=== PATIENT | male | born 1950 | race Caucasian/White ===

== ENCOUNTER 2017-04-23 11:38 | Inpatient (IN) | payer MEDICARE ==
[~2017-04-23 11:38] MED LIST: ACTOS; ALPHA LIPOIC A PO; AMITRIPTYLINE H50 MG; AMLODIPINE BESYL5 MG PO; BACTRIM DS TAB1 EAC2 PO; CINNAMON500 M1 PO; CITALOPRAM HBR20 MG PO; COZAAR50 M1 PO; ELAVIL; GLIPIZIDE10 M2 PO; GLYBURID-METFOR1 T PO; GLYBURIDE-MET1 UDTA; GLYBURIDE5 M1 PO; IMITREX; IMITREX100 M2 PO; IMITREX100 MG; INDERAL LA160 MG; IRON325 M1 PO; IRON325 M3 PO; LANTUS SOL100 UNIT/1 SC; LANTUS SOLOSTAR3 ML SQ; LANTUS100 U/ML SC; LEVAQUIN750 MG PO; LEVEMIR FL100 UNIT/2 SQ; LEVEMIR100 UNITS/ SC; LOVENOX40 MG/0.4 SQ; MAGNESIUM400 M2 PO; METFORMIN; METFORMIN HCL500 M2 PO; NORCO 5-325 TA1 EACH PO; NORCO 5/325 TAB1 TAB PO; NORCO 7.5/325 T1 TAB PO; PROPRANOLOL HCL80 M3 PO; PROPRANOLOL LA; SENNA LAXATIVE1 EACH PO; TOPIRAMATE200 M1 PO; VITAMIN D1000 UNI3 PO; ZOCOR20 MG PO
[2017-04-23] MEDS ORDERED: BACTRIM DS TAB1 EAC2 PO (12:07)
[2017-04-23 15:11] LABS: PROTHROMBIN TIME 11.6 SECONDS (9.0-13.6)
[2017-04-23 15:15] LABS: BASO % 0.1 % (0-2); HCT-HEMATOCRIT 33.1 % (36.0-53.5); HGB-HEMOGLOBIN 11.5 gm/dl (13.5-17.0); IMMATURE GRANULOCYTES ABSOLUTE 0.21 tho/cmm (0-0.03); IMMATURE GRANULOCYTES PERCENT 0.8 % (0-0.3); LYMPH ABSOLUTE COUNT 2.2 tho/cmm (0.8-4.5); MCH (MEAN CORPUSCULAR HGB) 30.9 pg (28.0-32.0); MCHC MEAN CORPUSCULAR HGB CONC 34.7 % (32.0-36.0); MEAN PLATELET VOLUME 9.6 cmc (9.4-12.4); MONO % 12.9 % (0-12); MONOCYTE ABSOLUTE COUNT 3.5 tho/cmm (0.0-1.2); NEUTROPHILS % 78.2 % (40-80); PLATELET COUNT 375 tho/cmm (150-450); RED BLOOD COUNT 3.72 mil/cmm (4.40-5.70); RED CELL DISTRIBUTION WIDTH 12.7 % (12.4-16.4); WHITE BLOOD COUNT 26.9 tho/cmm (4.0-10.0)
[2017-04-23 15:21] LABS: ALB/GLOB RATIO 0.5 (0.8-2.0); ALBUMIN 2.4 g/dl (3.5-5.0); ALKALINE PHOSPHATASE 88 U/L (33-138); ALT/SGPT 13 U/L (12-78); ANION GAP 15 mmol/L (0-20); AST/SGOT 11 U/L (10-40); BILIRUBIN,TOTAL 0.7 mg/dl (0.0-1.5); BLOOD UREA NITROGEN 28 mg/dl (6-24); CALCIUM 8.4 mg/dl (8.5-10.5); CARBON DIOXIDE-VENOUS 23 mmol/L (22-32); CHLORIDE 93 mmol/l (96-110); CREATININE 1.73 mg/dl (0.60-1.30); GLUCOSE 255 mg/dL (70-110); POTASSIUM 3.9 mmol/L (3.7-5.1); SODIUM 127 mmol/L (135-145); eGFR VALUE FOR BLACK 46 mL/Min
[2017-04-23] MEDS ORDERED: NORVASC5 M2 PO (15:24)
[2017-04-23 15:42] LABS: PREALBUMIN 5.6 mg/dl (20.0-40.0)
[2017-04-23] MEDS ORDERED: MULBERRY LEAF PO (16:06)
[2017-04-24 12:58] LABS: BASO % 0.1 % (0-2); EOS % 0.3 % (0-7); EOSINOPHIL ABSOLUTE COUNT 0.1 tho/cmm (0.0-0.7); HCT-HEMATOCRIT 30.8 % (36.0-53.5); HGB-HEMOGLOBIN 10.5 gm/dl (13.5-17.0); IMMATURE GRANULOCYTES ABSOLUTE 0.17 tho/cmm (0-0.03); LYMPH % 11.2 % (20-45); LYMPH ABSOLUTE COUNT 1.8 tho/cmm (0.8-4.5); MCH (MEAN CORPUSCULAR HGB) 30.3 pg (28.0-32.0); MCHC MEAN CORPUSCULAR HGB CONC 34.1 % (32.0-36.0); MCV (MEAN CELL VOLUME) 88.8 fl (82.0-96.0); MEAN PLATELET VOLUME 9.5 cmc (9.4-12.4); MONO % 10.3 % (0-12); MONOCYTE ABSOLUTE COUNT 1.7 tho/cmm (0.0-1.2); NEUTROPHIL ABSOLUTE COUNT 12.5 tho/cmm (1.6-8.0); NEUTROPHIL-AUTOMATED 12.5 tho/cmm (1.6-8.0); NEUTROPHILS % 77.1 % (40-80); PLATELET COUNT 388 tho/cmm (150-450); RED BLOOD COUNT 3.47 mil/cmm (4.40-5.70); RED CELL DISTRIBUTION WIDTH 12.8 % (12.4-16.4); WHITE BLOOD COUNT 16.2 tho/cmm (4.0-10.0)
[2017-04-24 13:23] LABS: ANION GAP 13 mmol/L (0-20); BLOOD UREA NITROGEN 21 mg/dl (6-24); C-REACTIVE PROTEIN 17.9 mg/dl (0-0.9); CALCIUM 8.1 mg/dl (8.5-10.5); CARBON DIOXIDE-VENOUS 21 mmol/L (22-32); CHLORIDE 102 mmol/l (96-110); CREATININE 1.45 mg/dl (0.60-1.30); GLUCOSE 257 mg/dL (70-110); POTASSIUM 3.9 mmol/L (3.7-5.1); SODIUM 132 mmol/L (135-145); eGFR VALUE FOR BLACK 57 mL/Min
[2017-04-24 13:30] LABS: PROCALCITONIN 1.43 ng/ml (0.05-0.09)
[2017-04-25 05:48] LABS: BASO % 0.1 % (0-2); EOS % 0.8 % (0-7); EOSINOPHIL ABSOLUTE COUNT 0.1 tho/cmm (0.0-0.7); HCT-HEMATOCRIT 30.1 % (36.0-53.5); HGB-HEMOGLOBIN 10.2 gm/dl (13.5-17.0); IMMATURE GRANULOCYTES ABSOLUTE 0.21 tho/cmm (0-0.03); IMMATURE GRANULOCYTES PERCENT 1.3 % (0-0.3); LYMPH % 11.9 % (20-45); MCH (MEAN CORPUSCULAR HGB) 30.1 pg (28.0-32.0); MCHC MEAN CORPUSCULAR HGB CONC 33.9 % (32.0-36.0); MCV (MEAN CELL VOLUME) 88.8 fl (82.0-96.0); MEAN PLATELET VOLUME 9.2 cmc (9.4-12.4); MONO % 14.8 % (0-12); MONOCYTE ABSOLUTE COUNT 2.5 tho/cmm (0.0-1.2); NEUTROPHILS % 71.1 % (40-80); PLATELET COUNT 371 tho/cmm (150-450); RED BLOOD COUNT 3.39 mil/cmm (4.40-5.70); RED CELL DISTRIBUTION WIDTH 12.8 % (12.4-16.4); WHITE BLOOD COUNT 16.8 tho/cmm (4.0-10.0)
[2017-04-25 05:55] LABS: ANION GAP 12 mmol/L (0-20); BLOOD UREA NITROGEN 17 mg/dl (6-24); C-REACTIVE PROTEIN 14.7 mg/dl (0-0.9); CALCIUM 8.1 mg/dl (8.5-10.5); CARBON DIOXIDE-VENOUS 21 mmol/L (22-32); CHLORIDE 104 mmol/l (96-110); CREATININE 1.24 mg/dl (0.60-1.30); GLUCOSE 208 mg/dL (70-110); POTASSIUM 3.9 mmol/L (3.7-5.1); SODIUM 133 mmol/L (135-145); eGFR VALUE FOR BLACK 69 mL/Min
[2017-04-25 06:28] LABS: PROCALCITONIN 0.99 ng/ml (0.05-0.09)
[2017-04-26 06:02] LABS: BASO % 0.2 % (0-2); EOS % 2.8 % (0-7); EOSINOPHIL ABSOLUTE COUNT 0.4 tho/cmm (0.0-0.7); HCT-HEMATOCRIT 30.3 % (36.0-53.5); HGB-HEMOGLOBIN 10.1 gm/dl (13.5-17.0); IMMATURE GRANULOCYTES ABSOLUTE 0.18 tho/cmm (0-0.03); IMMATURE GRANULOCYTES PERCENT 1.3 % (0-0.3); LYMPH % 11.9 % (20-45); LYMPH ABSOLUTE COUNT 1.7 tho/cmm (0.8-4.5); MCH (MEAN CORPUSCULAR HGB) 29.7 pg (28.0-32.0); MCHC MEAN CORPUSCULAR HGB CONC 33.3 % (32.0-36.0); MCV (MEAN CELL VOLUME) 89.1 fl (82.0-96.0); MEAN PLATELET VOLUME 9.4 cmc (9.4-12.4); MONO % 14.1 % (0-12); NEUTROPHIL ABSOLUTE COUNT 9.8 tho/cmm (1.6-8.0); NEUTROPHIL-AUTOMATED 9.8 tho/cmm (1.6-8.0); NEUTROPHILS % 69.7 % (40-80); PLATELET COUNT 461 tho/cmm (150-450); WHITE BLOOD COUNT 14.1 tho/cmm (4.0-10.0)
[2017-04-26 06:12] LABS: ANION GAP 14 mmol/L (0-20); BLOOD UREA NITROGEN 12 mg/dl (6-24); CALCIUM 8.5 mg/dl (8.5-10.5); CARBON DIOXIDE-VENOUS 21 mmol/L (22-32); CHLORIDE 105 mmol/l (96-110); GLUCOSE 115 mg/dL (70-110); SODIUM 136 mmol/L (135-145); eGFR VALUE FOR BLACK 80 mL/Min
[2017-04-26 06:42] LABS: PROCALCITONIN 0.65 ng/ml (0.05-0.09)
[2017-04-28 06:12] LABS: BASO % 0.3 % (0-2); BASO ABSOLUTE COUNT 0.1 tho/cmm (0.0-0.2); EOS % 2.8 % (0-7); EOSINOPHIL ABSOLUTE COUNT 0.4 tho/cmm (0.0-0.7); HCT-HEMATOCRIT 31.7 % (36.0-53.5); HGB-HEMOGLOBIN 10.6 gm/dl (13.5-17.0); IMMATURE GRANULOCYTES ABSOLUTE 0.23 tho/cmm (0-0.03); IMMATURE GRANULOCYTES PERCENT 1.6 % (0-0.3); LYMPH % 15.1 % (20-45); LYMPH ABSOLUTE COUNT 2.2 tho/cmm (0.8-4.5); MCH (MEAN CORPUSCULAR HGB) 29.9 pg (28.0-32.0); MCHC MEAN CORPUSCULAR HGB CONC 33.4 % (32.0-36.0); MCV (MEAN CELL VOLUME) 89.5 fl (82.0-96.0); MONO % 10.2 % (0-12); MONOCYTE ABSOLUTE COUNT 1.5 tho/cmm (0.0-1.2); NEUTROPHIL ABSOLUTE COUNT 10.3 tho/cmm (1.6-8.0); NEUTROPHIL-AUTOMATED 10.3 tho/cmm (1.6-8.0); PLATELET COUNT 618 tho/cmm (150-450); RED BLOOD COUNT 3.54 mil/cmm (4.40-5.70); RED CELL DISTRIBUTION WIDTH 13.3 % (12.4-16.4); WHITE BLOOD COUNT 14.7 tho/cmm (4.0-10.0)
[2017-04-28 06:21] LABS: ANION GAP 13 mmol/L (0-20); BLOOD UREA NITROGEN 11 mg/dl (6-24); CALCIUM 8.9 mg/dl (8.5-10.5); CARBON DIOXIDE-VENOUS 22 mmol/L (22-32); CHLORIDE 106 mmol/l (96-110); CREATININE 1.06 mg/dl (0.60-1.30); GLUCOSE 139 mg/dL (70-110); POTASSIUM 4.2 mmol/L (3.7-5.1); SODIUM 137 mmol/L (135-145); eGFR VALUE FOR BLACK 84 mL/Min
[2017-04-29] MEDS ORDERED: HYDROCODON-ACE1 EA16 PO (11:25)
[2017-04-29] MEDS ORDERED: NORVASC5 M2 PO (11:26)
[2017-04-29] MEDS ORDERED: LEVEMIR100 UNITS/ SC (11:26)
[2017-04-29] MEDS ORDERED: BACTRIM DS TAB1 EAC2 PO (11:27)
[2017-06-17] MEDS ORDERED: NORCO 5-325 TA1 EACH PO (08:51)
== END 2017-04-29 15:03 | DRG 617 ==
LOC: BRNOP 11:38 → BURN 13:02 → ORW 04-25 13:58 → BURN 04-25 15:30
PROVIDERS: Nurse Practitioner; Physician Assistant Surgical; ADMIT Surgery
PROC: 0Y6W0Z0 Detachment at Left 4th Toe, Complete, Open Approach (ICD-10-PCS; principal; 2017-04-23)
PROC: 0Y6Y0Z0 Detachment at Left 5th Toe, Complete, Open Approach (ICD-10-PCS; 2017-04-23)
PROC: 0JBR0ZZ Excision of Left Foot Subcutaneous Tissue and Fascia, Open Approach (ICD-10-PCS; 2017-04-23)
PROC: 0JBQ0ZZ Excision of Right Foot Subcutaneous Tissue and Fascia, Open Approach (ICD-10-PCS; 2017-04-23)
PROC: 02HV33Z Insertion of Infusion Device into Superior Vena Cava, Percutaneous Approach (ICD-10-PCS; 2017-04-24)
DX: E11.621 Type 2 diabetes mellitus with foot ulcer (principal); L03.116 Cellulitis of left lower limb; N17.9 Acute kidney failure, unspecified; E44.0 Moderate protein-calorie malnutrition; E11.40 Type 2 diabetes mellitus with diabetic neuropathy, unspecified; M86.8X7 Other osteomyelitis, ankle and foot; E87.1 Hypo-osmolality and hyponatremia; E11.628 Type 2 diabetes mellitus with other skin complications; E11.69 Type 2 diabetes mellitus with other specified complication; I10 Essential (primary) hypertension; M19.90 Unspecified osteoarthritis, unspecified site; Z79.4 Long term (current) use of insulin; Z89.421 Acquired absence of other right toe(s); L97.529 Non-pressure chronic ulcer of other part of left foot with unspecified severity; K21.9 Gastro-esophageal reflux disease without esophagitis; Z87.11 Personal history of peptic ulcer disease; Z86.19 Personal history of other infectious and parasitic diseases; F32.9 Major depressive disorder, single episode, unspecified; Z68.33 Body mass index [BMI] 33.0-33.9, adult
CPT/HCPCS: C1751; G0463; J0171; J0360; J1580; J1815; J2250; J2270; J2543; J2997; J3370; J7030; J7050; J7999